=== PATIENT | female | born 1990 | race African-American/Black ===

== ENCOUNTER 2020-07-08 16:22 | Emergency (ER) | payer MEDICAID, MEDICARE, SELFPAY ==
[2020-07-08 16:52] LABS: Hemoglobin 17.4 g/dL (12.0-16.0); Mean Corpuscular HGB CONC 31.2 g/dL (32.0-36.0); Mean Corpuscular Volume 96.2 fL (78.0-98.0); Mean Platelet Volume 12.4 fL (7.4-10.4); Platelet Count 156 thou/uL (130-400); RBC Distribution Width 16.5 % (11.5-14.5); White Blood Cell (WBC) Count 11.9 thou/uL (4.8-10.8)
[2020-07-08 17:05] LABS: ALT (SGPT) 20 U/L (8-55); AST (SGOT) 28 U/L (5-34); Albumin 4.3 g/dL (3.5-5.0); Alkaline Phosphatase 84 U/L (40-110); Anion Gap 18 mmol/L (10-20); BUN (Urea Nitrogen) 12 mg/dL (7.0-18.7); Bilirubin, Total 0.5 mg/dL (0.2-1.2); Calc. Creatinine Clearance 0 mL/min (70-130); Calcium 8.8 mg/dL (7.8-10.44); Carbon Dioxide 18 mmol/L (22-29); Chloride 107 mmol/L (98-107); Digoxin Less than 0.15 ng/mL (0.8-2.0); Globulin 3.8 g/dL (2.4-3.5); Glucose 71 mg/dL (70-105); Potassium 4.1 mmol/L (3.5-5.1); Protein, Total 8.1 g/dL (6.0-8.3); Sodium 139 mmol/L (136-145)
[2020-07-08] MEDS ORDERED: Aspirin Chewable 81 MG TAB ONE (17:06)
[2020-07-08] MEDS ORDERED: Fentanyl 100 MCG/2 ML VIAL ONE (17:06)
[2020-07-08 17:08] LABS: #Basophils 0.3 thou/uL (0.0-0.2); #Lymphocytes 2.8 thou/uL (1.20-3.40); #Monocytes 1.2 thou/uL (0.11-0.59); #Neutrophils 7.6 thou/uL (1.40-6.50); %Basophils 2.6 % (0.0-1.0); %Eosinophils 0.2 % (0.0-10.0); %Lymphocytes 23.8 % (21.0-51.0); %Monocytes 10.2 % (0.0-10.0); %Neutrophils 63.2 % (42.0-75.0); Large Platelets SLIGHT; MDiff Complete? YES
--- NOTE | 2020-07-09 06:50 | RAD ---
PORTABLE CHEST: Date: 07/08/2020 An AP portable film at 1658 hours is compared with the 05/18/2016 study. The patient's extreme thoracolumbar scoliosis distorts the chest somewhat and lowers the sensitivity of the study. No major lobar infiltrate was appreciated. No effusions seen. There is no vascular yesenia estion or edema. The heart size is unchanged. IMPRESSION: No change since the prior exam. POS: HOME
== END 2020-07-08 18:00 | disposition home or self-care (01) ==
LOC: BURERS 16:22
DX: R07.89 Other chest pain (principal); R06.4 Hyperventilation; I27.20 Pulmonary hypertension, unspecified; Z79.899 Other long term (current) drug therapy
CPT/HCPCS: 71045; 80053; 80162; 83880; 84484; 85025; 85379; 93005; 96374; J3010